=== PATIENT | male | born 1980 | race Two or more races ===

== ENCOUNTER 2020-02-29 18:33 | Emergency (ER) | payer MEDICAID ==
[~2020-02-29] VITALS: Ht 170.2 cm; Wt 81.6 kg
[2020-02-29 18:45] VITALS: BP 146/87
[2020-02-29] MEDS ORDERED: KETOROLAC TROMETH 60MG/2ML VIAL IM ONE (20:00)
== END 2020-02-29 20:47 | disposition home or self-care (01) ==
LOC: ER 18:33
DX: S33.5XXA Sprain of ligaments of lumbar spine, initial encounter (principal); M54.16 Radiculopathy, lumbar region; M79.604 Pain in right leg; X50.9XXA Other and unspecified overexertion or strenuous movements or postures, initial encounter; Y93.89 Activity, other specified; Y92.89 Other specified places as the place of occurrence of the external cause; Y99.8 Other external cause status
CPT/HCPCS: 96372; 99283; J1885

== ENCOUNTER 2021-01-28 11:17 | Emergency (ER) | payer OTHER, MEDICAID ==
[~2021-01-28] VITALS: Ht 170.2 cm; Wt 81.6 kg
[2021-01-28 12:10] VITALS: BP 148/99
[2021-01-28] MEDS ORDERED: KETOROLAC TROMETH 60MG/2ML VIAL IM ONE (12:45)
== END 2021-01-28 13:15 | disposition home or self-care (01) ==
LOC: ER 11:17
DX: S16.1XXA Strain of muscle, fascia and tendon at neck level, initial encounter (principal); S39.012A Strain of muscle, fascia and tendon of lower back, initial encounter; M75.31 Calcific tendinitis of right shoulder; V43.52XA Car driver injured in collision with other type car in traffic accident, initial encounter; Y93.89 Activity, other specified; Y92.488 Other paved roadways as the place of occurrence of the external cause; Y99.8 Other external cause status
CPT/HCPCS: 72040; 72100; 73030; 96372; 99284; J1885

== ENCOUNTER → 2021-03-17 | Emergency (ER) | payer MEDICAID ==
[~2021-03-17] VITALS: Ht 167.6 cm; Wt 79.4 kg
[2021-03-17 21:13] VITALS: BP 139/84
== END | disposition home or self-care (01) ==
LOC: ER 16:50
DX: R22.31 Localized swelling, mass and lump, right upper limb (principal); T88.1XXA Other complications following immunization, not elsewhere classified, initial encounter

== ENCOUNTER 2021-06-16 07:24 | Emergency (ER) | payer MEDICAID ==
[~2021-06-16] VITALS: Ht 170.2 cm; Wt 81.6 kg
[2021-06-16] MEDS ORDERED: KETOROLAC TROMETH 60MG/2ML VIAL IM ONE (08:45)
[2021-06-16 09:08] VITALS: BP 143/84
== END 2021-06-16 09:20 | disposition home or self-care (01) ==
LOC: ER 07:24
DX: M77.8 Other enthesopathies, not elsewhere classified (principal)
CPT/HCPCS: 73030; 96372; 99283; J1885